=== PATIENT | male | born 1975 | race Caucasian/White ===

== ENCOUNTER 2018-06-24 18:35 | Emergency (ER) | payer SELFPAY | END 2018-06-24 18:55 | disposition home or self-care (01) | LOC: BURERS 18:35 | DX: S81.812D Laceration without foreign body, left lower leg, subsequent encounter (principal) ==

== ENCOUNTER 2023-11-04 17:18 | Emergency (ER) | payer SELFPAY ==
[2023-11-04] MEDS ORDERED: Tetracaine 0.5% PF 4 ML BOT ONE (17:25)
[2023-11-04] MEDS ORDERED: Fluorescein Opthalmic Strip ONE (17:25)
[2023-11-04] MEDS ORDERED: HYDROcodone/Acetaminophen 5/325 mg Tablet ONE (17:54)
== END 2023-11-04 18:05 | disposition home or self-care (01) ==
LOC: BURERS 17:18
DX: T15.01XA Foreign body in cornea, right eye, initial encounter (principal); F17.210 Nicotine dependence, cigarettes, uncomplicated; X58.XXXA Exposure to other specified factors, initial encounter
CPT/HCPCS: 65220; 99283